=== PATIENT | female | born 1935 | race Caucasian/White ===

== ENCOUNTER 2017-06-17 15:34 | Inpatient (IN) | payer MEDICARE, MEDICAID ==
[~2017-06-17] VITALS: Ht 165.1 cm; Wt 65.3 kg
--- NOTE | 2017-06-17 15:35 | NUR ---
PT TO ED ROOM 03. BIB RA FROM [facility]ARE [facility]ILITY,SHORT OF BREATH. A/O x 1. SIDE RAIS LUP. HOB ELEVATED. CONNECTED TO MONIOTR.
[2017-06-17] MEDS ORDERED: ACETAMINOPHEN 650 MG/SUPP.RECT RC ONE ×2 (15:57→16:00)
[2017-06-17] MEDS ORDERED: PIPERACILLIN /TAZOBACTAM 3.375 G in IV D5W 50 ML IV ONE (16:00)
[2017-06-17] MEDS ORDERED: IV NS 0.9% 1,000 ML BAG IV ONE ×2 (16:00)
[2017-06-17] MEDS ORDERED: VANCOMYCIN 1 GM in IV D5W 250 ML IV ONE (16:00)
[2017-06-17 16:25] LABS: APPEARANCE,URINE CLEAR (CLEAR); BILIRUBIN,URINE NEGATIVE (NEGATIVE); BLOOD, URINE NEGATIVE Ery/uL (NEGATIVE); COLOR,URINE YELLOW (YELLOW); KETONES,URINE NEGATIVE (NEGATIVE); LEUKOCYTE ESTERASE ,URINE NEGATIVE (NEGATIVE); NITRITE, URINE NEGATIVE (NEGATIVE); PROTEIN,URINE TRACE mg/dl (NEGATIVE); UGLUCOSE NEGATIVE (NEGATIVE); UROBILINOGEN,URINE 0.2 EU/dL (0.2)
[2017-06-17 16:26] LABS: BASOPHILS % (AUTO) 0.1 % (0.0-2.0); HEMATOCRIT 41 % (33-45); HEMOGLOBIN 12.7 g/dL (11.5-14.8); LYMPHOCYTES % (AUTO) 9.8 % (20.0-44.0); MEAN CORPUSCULAR HEMOGLOBIN 29 PG (26.0-33.0); MEAN CORPUSCULAR HGB CONC 31 g/dl (31.0-36.0); MEAN CORPUSCULAR VOLUME 93 fL (82-100); MONOCYTES # (AUTO) 0.8 /CMM (0.1-1.30); MONOCYTES % (AUTO) 3.8 % (2.0-12.0); NEUTROPHILS # (AUTO) 17.5 /CMM (1.8-8.9); NEUTROPHILS % (AUTO) 86.3 % (43.0-81.0); PLATELET COUNT (AUTO) 142 /CMM (150-450); RDW COEFFICIENT OF VARIATION 15.7 (11.5-15.0); WHITE BLOOD COUNT (AUTO) 20.3 K/uL (4.3-11.0)
--- NOTE | 2017-06-17 16:27 | NUR ---
BED CHANGED TO 313-2 TELE
[2017-06-17 16:37] LABS: ALANINE AMINOTRANSFERASE 48 U/L (12-78); ALBUMIN 1.9 g/dL (3.4-5.0); ALKALINE PHOSPHATASE 89 U/L (46-116); ASPARTATE AMINOTRANSFERASE 30 U/L (15-37); BILIRUBIN,DIRECT 0.1 mg/dL (0.0-0.2); BILIRUBIN,TOTAL 0.7 mg/dL (0.2-1.0); CALCIUM, SERUM 9.4 mg/dL (8.5-10.1); CARBON DIOXIDE 36 mmol/L (21-32); CREATININE 1.1 mg/dL (0.6-1.3); GLUCOSE 279 mg/dL (74-106); POTASSIUM 3.6 mmol/L (3.5-5.1); TOTAL PROTEIN, SERUM 6.4 g/dL (6.4-8.2)
[2017-06-17 16:40] LABS: TROPONIN I 0.205 ng/mL (0.00-0.056)
[2017-06-17 16:41] LABS: INR 1.08 (0.87-1.13); PROTHROMBIN TIME 11.2 SECS (9.5-12.7)
[2017-06-17 16:43] LABS: SODIUM SERUM 167 mmol/L (136-145)
[2017-06-17 16:44] LABS: CHLORIDE 126 mmol/L (98-107); UREA NITROGEN, BLOOD 98 mg/dL (7-18)
[2017-06-17 16:51] LABS: BACTERIA,URINE Few /HPF (None Seen); RBC,URINE 0-2 /HPF (0-2); SQUAMOUS EPITHELIAL CELL,UR Moderate /HPF (None Seen); WBC,URINE 0-2 /HPF (0-3)
[2017-06-17 17:01] LABS: BAND % (MANUAL) 19 % (0.0-5.0); LYMPHOCYTES % (MANUAL) 14 % (16-48); MONOCYTES % (MANUAL) 7 % (0-11.0); NEUTROPHILS % (MANUAL) 60 (42-76)
[2017-06-17] MEDS ORDERED: IPRA3AMP IH (17:03)
[2017-06-17] MEDS ORDERED: FAMO-131 GT (17:03)
[2017-06-17] MEDS ORDERED: EXEM25TA5 GT (17:03)
[2017-06-17] MEDS ORDERED: METO25TA6 GT (17:03)
[2017-06-17] MEDS ORDERED: CLOP75TA2 GT (17:03)
[2017-06-17] MEDS ORDERED: NUT.237L30 GT (17:03)
[2017-06-17] MEDS ORDERED: DOCU100T2 GT (17:03)
[2017-06-17] MEDS ORDERED: LEVE500S GT (17:03)
[2017-06-17] MEDS ORDERED: VALS40TA4 GT (17:03)
--- NOTE | 2017-06-17 17:07 | NUR ---
CALLED [facility] FOR PANEL (DR. SAMANIEGO)
--- NOTE | 2017-06-17 17:37 | NUR ---
INFLUENZA SWAB R NARE OBTAINED, SEND TO LAB.
[2017-06-17] MEDS ORDERED: IV 1/2NS 1000 ML 1,000 ML IV PRN (17:44)
[2017-06-17 17:56] LABS: ABG BASE EXCESS 0.8 mmol/L; ABG OXYGEN SATURATION 91.5 % (92.0-98.5); ABG PCO2 37.3 mmHg (35.0-45.0); ABG PO2 67.7 mmHg (75.0-100.0); AaDO2 145.7 mmHg; COHb 0.1 % (0.5-1.5); MetHb 0.5 % (0.0-1.5); SITE, ABG Left Radial
[2017-06-17] MEDS: VALSARTAN 40 MG TABLET GT SCH (18:00)
[2017-06-17] MEDS ORDERED: Z GUARD REMEDY 2 OZ OINT TP PRN (18:00)
[2017-06-17] MEDS ORDERED: ENOXAPARIN SODIUM 40 MG/0.4 ML DISP.SYRIN SQ SCH (18:00)
[2017-06-17] MEDS ORDERED: DOCUSATE SODIUM LIQ 100 MG/10 ML UDC GT PRN (18:00)
[2017-06-17] MEDS ORDERED: ACETAMINOPHEN 325 MG TABLET PO PRN (18:00)
[2017-06-17] MEDS ORDERED: ONDANSETRON HCL/PF 4 MG/2 ML VIAL IVP PRN (18:00)
[2017-06-17] MEDS ORDERED: ASPIRIN 325 MG TABLET ONE (18:01)
[2017-06-17] MEDS: ASPIRIN 325 MG TABLET PO SCH (18:02)
[2017-06-17] MEDS ORDERED: FEE PK DOSING 1 MIN EA MC ONE (18:06)
--- NOTE | 2017-06-17 18:34 | NUR ---
REPORT GIVEN [id number] BUSINESS AREA MANAGER FOR EUSEBIA.
--- NOTE | 2017-06-17 18:45 | NUR ---
GROUP MARKETING VP RECEIVED PATIENT FROM E.R. DEPT A/OX 1, NON-VERBAL OPENS EYES ONLY, ON VENTURI MASK AT 6LPM, VITAL SIGNS OBTAINED, PER FAMILY DNR/DNI AND DO NOT USE RIGHT ARM D/T HX OF REMOVAL OF LYMPH NODE, SIGNED PLACED ON HEADBOARD, F/C PATENT AND DRAINING, NEEDS ATTENDED, WILL ENDORSE TO LANGUAGE THERAPIST FOR EUSEBIA.
[2017-06-17 19:00] VITALS: BP 98/59
--- NOTE | 2017-06-17 19:15 | NUR ---
MS/RN OPENING NOTES PT RECEIVED IN BED, OPENS EYES BUT NONVERBAL. ON 6LPM O2 VIA VENTURI MASK, BREATHING EVEN AND SLIGHTLY LABORED. NO IV, BP OR BLOOD DRAWS TO RIGHT ARM, SIGNS ABOVE HOB. IV TO LFA PATENT AND INTACT. CEBALLOS IN PLACE AND DRAINING WELL. HOB ELEVATED. GT SITE NOTED. BED IN LOW/LOCKED POSITION WITH CALL LIGHT IN REACH SIDE RAILS UPX2. BED ALARM ON FOR SAFETY. WILL CONTINUE TO MONITOR.
[2017-06-17] MEDS ORDERED: Medication Not On Formulary EA (Ipratropium/Albuterol Sulfate (Duoneb 2.5-0.5 Mg/3 Ml So IH SCH (19:30)
[2017-06-17 20:00] VITALS: BP 114/61
[2017-06-17] MEDS ORDERED: PIPERACILLIN /TAZOBACTAM 4.5 G in IV D5W 50 ML IV SCH (21:00)
[2017-06-17] MEDS: METOPROLOL TARTRATE 25 MG TABLET GT SCH (21:00)
[2017-06-17 21:45] VITALS: BP 100/47
[2017-06-17] MEDS: LEVETIRACETAM SOL (5 ML) 100 MG/ML UDC GT SCH (22:03)
[2017-06-17] MEDS: FAMOTIDINE (20 MG) 20 MG TABLET GT SCH (22:03)
[2017-06-17] MEDS: GLYTROL 1,000 ML BAG GT PRN (22:05)
[2017-06-17] MEDS: PIPERACILLIN /TAZOBACTAM 2.25 G in IV D5W 50 ML IV SCH (22:06)
[2017-06-17] MEDS: ALBUTEROL FS 2.5 MG/3 ML VIAL.NEB NEB SCH (22:42)
[2017-06-17] MEDS: IPRATROPIUM NEB FS 0.5 MG/2.5 ML AMPUL.NEB NEB SCH (22:42)
--- NOTE | 2017-06-17 23:20 | NUR ---
MS/RN NOTES ATTEMPTED TO CALL FAMILY TO CONFIRM CODE STATUS. FITNESS CENTRE MANAGER TRIED CALLING WELL. PROGRESS NOTES PER DR. SAMANIEGO SAYS HE DISCUSSED END OF LIFE WITH FAMILY. NOTES PER DAY SHIFT SHOWS "PER FAMILY DNR/DNI"
--- NOTE | 2017-06-18 | NUR ---
MS/RN NOTES SPOKE TO FAMILY MEMBERS RUDI AND STEVIE. CONFIRM DNR/DNI STATUS. WITNESSED BY REPLANTING MACHINE OPERATOR
[2017-06-18] MEDS: IPRATROPIUM NEB FS 0.5 MG/2.5 ML AMPUL.NEB NEB SCH ×6 (03:30→23:37)
[2017-06-18] MEDS: ALBUTEROL FS 2.5 MG/3 ML VIAL.NEB NEB SCH ×6 (03:30→23:37)
[2017-06-18 04:00] VITALS: BP 120/64
[2017-06-18 05:00] VITALS: BP 108/56
[2017-06-18] MEDS: PIPERACILLIN /TAZOBACTAM 2.25 G in IV D5W 50 ML IV SCH ×4 (06:10→23:21)
--- NOTE | 2017-06-18 06:41 | NUR ---
MS/RN CLOSING NOTES PT ASLEEP IN BED. OPENS EYES, NONVERBAL. REMAINS ON VENTURI MASK AT 6LPM. BREATHING EVEN AND SLIGHTLY LABORED. SPO2 >95% THROUGHOUT SHIFT. IV TO LEFT FA PATENT AND INTACT RUNNING IVF ORDERED. GT PATENT AND INTACT, FLUSHED AND IS RUNNING GLYTROL ORDERED. CEBALLOS IN PLACE AND DRAINING WELL. PT REMAINED AFEBRILE DURING SHIFT. TURNED/REPOSITIONED PT Q2H AND HEELS OFFLOADED AT ALL TIMES. HOB ELEVATED SEMI FOWLERS FOR ASPIRATION PRECAUTION. BED IN LOW/LOCKED POSITION, CALL LIGHT IN REACH AND SIDE RAILS UPX2. WILL ENDORSE TO AM SHIFT EUSEB[place].
[2017-06-18 07:17] LABS: BASOPHILS % (AUTO) 0.2 % (0.0-2.0); EOSINOPHILS % (AUTO) 0.2 % (0.0-6.0); HEMATOCRIT 35 % (33-45); HEMOGLOBIN 11.2 g/dL (11.5-14.8); LYMPHOCYTES # (AUTO) 1.8 /CMM (0.8-4.8); LYMPHOCYTES % (AUTO) 9.4 % (20.0-44.0); MEAN CORPUSCULAR HEMOGLOBIN 30 PG (26.0-33.0); MEAN CORPUSCULAR HGB CONC 32 g/dl (31.0-36.0); MEAN CORPUSCULAR VOLUME 92 fL (82-100); MONOCYTES # (AUTO) 0.8 /CMM (0.1-1.30); MONOCYTES % (AUTO) 4.5 % (2.0-12.0); NEUTROPHILS # (AUTO) 16.1 /CMM (1.8-8.9); NEUTROPHILS % (AUTO) 85.7 % (43.0-81.0); PLATELET COUNT (AUTO) 146 /CMM (150-450); RDW COEFFICIENT OF VARIATION 15.1 (11.5-15.0); RED BLOOD CELL COUNT(AUTO) 3.77 MIL/uL (4.0-5.2); WHITE BLOOD COUNT (AUTO) 18.7 K/uL (4.3-11.0)
[2017-06-18 07:36] LABS: ALANINE AMINOTRANSFERASE 38 U/L (12-78); ALBUMIN 1.6 g/dL (3.4-5.0); ALKALINE PHOSPHATASE 80 U/L (46-116); ASPARTATE AMINOTRANSFERASE 31 U/L (15-37); BILIRUBIN,TOTAL 0.8 mg/dL (0.2-1.0); CARBON DIOXIDE 31 mmol/L (21-32); CHLORIDE 125 mmol/L (98-107); CREATININE 0.8 mg/dL (0.6-1.3); GLUCOSE 328 mg/dL (74-106); MAGNESIUM 2.5 mg/dL (1.8-2.4); PHOSPHORUS 2.9 mg/dL (2.5-4.9); POTASSIUM 3.3 mmol/L (3.5-5.1); TOTAL PROTEIN, SERUM 5.5 g/dL (6.4-8.2); UREA NITROGEN, BLOOD 73 mg/dL (7-18)
--- NOTE | 2017-06-18 07:58 | NUR ---
MS/RN OPENING NOTE PATIENT RECEIVED IN BED IN STABLE CONDITION. A/O X 1. NON VERBAL, OPEN EYES. NO SIGNS OF ACUTE DISTRESS. NO COMPLAIN OF PAIN OR DISCOMFORT. ALL NEEDS ATTENDED TO. CALL LIGHT WITHIN REACH. WILL CONTINUE TO MONITOR TO ENSURE SAFETY.
[2017-06-18 08:00] VITALS: BP 106/60
[2017-06-18 08:10] LABS: SODIUM SERUM 163 mmol/L (136-145)
--- NOTE | 2017-06-18 08:15 | NUR ---
MS/RN SODIUM CH RECEIVED CALL FROM JOHN FROM LAB AND SHE MADE AWARE REGARDING PATIENT'S SODIUM OF [address] SAMANIEGO NOTIFIED WITH NO ORDERS AT THIS TIME. PER DR. SAMANIEGO ITS TRENDING DOWN COMPARE TO YESTERDAY Na LEVEL OF 167. ALSO GAVE ORDER FOR ABG'S AND CXR TODAY.
[2017-06-18 08:37] LABS: CALCIUM, SERUM 7.9 mg/dL (8.5-10.1)
[2017-06-18] MEDS: ASPIRIN 325 MG TABLET PO SCH (08:40)
[2017-06-18] MEDS: LEVETIRACETAM SOL (5 ML) 100 MG/ML UDC GT SCH ×2 (08:40→20:14)
[2017-06-18] MEDS: METOPROLOL TARTRATE 25 MG TABLET GT SCH ×3 (08:41→21:00)
[2017-06-18] MEDS: FAMOTIDINE (20 MG) 20 MG TABLET GT SCH ×2 (08:41→20:14)
[2017-06-18] MEDS: VALSARTAN 40 MG TABLET GT SCH (08:42)
[2017-06-18] MEDS ORDERED: CLOPIDOGREL BISULFATE 75 MG TABLET GT SCH (09:00)
[2017-06-18] MEDS ORDERED: EXEMESTANE 25 MG GT SCH (09:00)
[2017-06-18 09:15] LABS: ABG BASE EXCESS 1.1 mmol/L; ABG OXYGEN SATURATION 95.4 % (92.0-98.5); ABG PCO2 36.6 mmHg (35.0-45.0); ABG PO2 89.7 mmHg (75.0-100.0); AaDO2 117.3 mmHg; COHb 0.3 % (0.5-1.5); O2Hb 94.2 % (94.0-97.0); SITE, ABG Left Radial
[2017-06-18] MEDS: VANCOMYCIN 1 GM in IV D5W 250 ML IV SCH (09:15)
[2017-06-18] MEDS ORDERED: POTASSIUM CHLORIDE 20 MEQ POWDER PACKET GT SCH (12:00)
--- NOTE | 2017-06-18 13:54 | NUR ---
Social service consult requested by Dr. Edwards for a readmission score of 7. Pt. is a 81 year old female who was admitted to [facility] for SOB. Pt. resides at [facility] located at [address] [place] [address]. . SW discussed case with leather case finisher Rose Blake who informed SW that pt. will now be on hospice care. Pt's son is Ernie and can be reached at .
--- NOTE | 2017-06-18 15:38 | NUR ---
FAMILY REFUSING XRAY, RN IS AWARE.
[2017-06-18 16:00] VITALS: BP 134/62
[2017-06-18] MEDS ORDERED: MORPHINE SULFATE INJ 2 MG/ML DISP.SYRIN IM PRN (17:00)
[2017-06-18] MEDS: MORPHINE SULFATE INJ 2 MG/ML DISP.SYRIN IV PRN ×2 (17:49→21:26)
--- NOTE | 2017-06-18 19:00 | NUR ---
MS/RN CLOSING NOTE PATIENT IN BED IN STABLE CONDITION. A/O X 1. NON VERBAL, EYES OPENED. ON VENTURI MASK AT 9L O2, O2 SAT 97%. NO SIGNS OF PAIN OR DISCOMFORT. ALL NEEDS ATTENDED TO. CALL LIGHT WITHIN REACH. WILL ENDORSE TO NEXT SHIFT FOR CONTINUITY OF CARE.
--- NOTE | 2017-06-18 19:40 | NUR ---
MS RN OPENING NOTES RECEIVED PATIENT LAYING IN BED IN MODERATE GALLAGHER POSITION. A & O X 1, NON VERBAL, OPENS & CLOSES EYES. ON O2 AT 9LPM VIA VENTURI MASK. NO SOB, NO S/S OF PAIN OR DISTRESS NOTED AT THIS TIME. ON CONTINUOS GLYTROL GTF AT 45ML/HR. RESIDUAL & PATENCY CHECKED. IV ACCESS TO LFA, INTACT PATENT. SIDE RAILS UP X 2 FOR SAFETY. BED IN LOW LOCKED POSITION. MADE COMFORTABLE IN BED. CALL LIGHT WITHIN REACH. OBSERVING CLOSELY.
[2017-06-18 19:41] VITALS: BP 120/53
[2017-06-18] MEDS: FLUCONAZOLE IN NS 100 MG in PREMIX 1 EA IV SCH ×2 (20:15)
[2017-06-18 21:20] VITALS: BP 108/71
--- NOTE | 2017-06-18 21:26 | NUR ---
PRN MORPHINE: PT NOTED TO HAVE FACIAL GRIMACE AND MOANING, ALSO PER FAMILY REQUEST TO GIVE THE MORPHINE, PT FOR HOSPICE EVAL IN AM, PRN MORPHINE 1MG IVP ADMINISTERED TO THE PT AT THIS TIME, VS TAKEN AND RECORDED, WILL CONTINUE TO MONITOR AND REASSESS
--- NOTE | 2017-06-18 21:50 | NUR ---
NEW BAG OF FEEDING: PT'S ABDOMEN SOFT TO TOUCH, WITH HYPOACTIVE BOWEL SOUND HEARD UPON AUSCULTATION OF THE ABDOMEN, NO GTUBE RESIDUAL NOTED, NEW BAG OF GLYTROL ULTRAPAK ADMINISTERED AT THIS TIME, TO RUN AT 45ML/HR.
[2017-06-18] MEDS: GLYTROL 1,000 ML BAG GT PRN (21:57)
--- NOTE | 2017-06-18 23:50 | NUR ---
CHANGE OF IV SITE LFA IV SITE NOTED TO BE INFILTRATED. IV SITE CHANGED TO LEFT WRIST WITH GOOD BLOOD FLOW. OLD IV CATH REMOVED. PRESSURE DRESSING APPLIED. ELEVATED THE LEFT EXTREMITY TO REDUCE THE SWELLING AT IV SITE. MONITORING CLOSELY.
--- NOTE | 2017-06-19 07:20 | NUR ---
RN OPENING NOTES RECEIVED PATIENT IN BED, AWAKE, NONVERBAL, OPENS EYES, NO FACIAL GRIMACING NOTED. APPEARS CALM AND COMFORTABLE. SHALLOW RESPIRATIONS NOTED, REMAINS ON 35% FIO2 VENTIMASK, O2 SAT 97-98%. IV SITE INTACT AND PATENT. CEBALLOS CATH IN PLACE. GTUBE INFUSING GLYTROL AT 45ML/HR. AWAITING FOR HOSPICE EVAL. KEPT PATIENT SAFE AND COMFORTABLE. WILL CONTINUE TO MONITOR ACCORDINGLY.
[2017-06-19 08:00] VITALS: BP 128/64
[2017-06-19] MEDS: LEVETIRACETAM SOL (5 ML) 100 MG/ML UDC GT SCH ×2 (09:00→20:39)
[2017-06-19] MEDS: FAMOTIDINE (20 MG) 20 MG TABLET GT SCH ×2 (09:00→20:38)
[2017-06-19] MEDS: VALSARTAN 40 MG TABLET GT SCH (09:00)
[2017-06-19] MEDS: METOPROLOL TARTRATE 25 MG TABLET GT SCH ×2 (09:00→20:52)
[2017-06-19] MEDS: IPRATROPIUM NEB FS 0.5 MG/2.5 ML AMPUL.NEB NEB SCH ×4 (09:50→20:35)
[2017-06-19] MEDS: ALBUTEROL FS 2.5 MG/3 ML VIAL.NEB NEB SCH ×4 (09:50→20:36)
--- NOTE | 2017-06-19 10:00 | NUR ---
RN NOTES PER DR SAMANIEGO, HOLD AM MEDS. WILL CONTINUE TO MONITOR PATIENT.
[2017-06-19 10:35] LABS: CALCIUM, SERUM 7.8 mg/dL (8.5-10.1); CARBON DIOXIDE 29 mmol/L (21-32); CHLORIDE 119 mmol/L (98-107); CREATININE 0.6 mg/dL (0.6-1.3); GLUCOSE 339 mg/dL (74-106); POTASSIUM 3.6 mmol/L (3.5-5.1); SODIUM SERUM 155 mmol/L (136-145); UREA NITROGEN, BLOOD 43 mg/dL (7-18)
[2017-06-19] MEDS: PIPERACILLIN /TAZOBACTAM 2.25 G in IV D5W 50 ML IV SCH ×3 (12:00→23:36)
[2017-06-19] MEDS: MORPHINE SULFATE INJ 2 MG/ML DISP.SYRIN IV PRN ×2 (14:06→20:39)
[2017-06-19 16:00] VITALS: BP 129/68
--- NOTE | 2017-06-19 17:30 | NUR ---
RN NOTES RECEIVED CALL FROM MICROBIOLOGY DEPT, PATIENT POSITIVE MRSA NARES, NOTIFIED CHARGE NURSE,ISAÍAS. WILL NOTIFY
--- NOTE | 2017-06-19 19:20 | NUR ---
RN CLOSING NOTES NO CHANGE OF CONDITION. NO ACUTE DISTRESS, NO SOB NOTED. NO S/S OF PAIN OR DISCOMFORT. ALL NEEDS ATTENDED AND PROVIDED. KEPT PATIENT SAFE AND COMFORTABLE. REPOSITIONED EVERY 2 HOURS. BED LOCKED, IN LOW POSITION, SIDERAILS UP X2. CALL LIGHT WITHIN REACH. ENDORSED TO NIGHT RN FOR EUSE[place].
--- NOTE | 2017-06-19 19:40 | NUR ---
RN INITIAL NOTES: RECEIVED REPORT FROM NIEVES SMART, PT IN BED, AWAKE, NON VERBAL, OPEN EYES SPONTANEOUSLY, UNABLE TO MAKE NEEDS KNOWN, ON VENTI MASK 9L FIO2 35%, CONNECTED TO CONTINUOUS PULSE OX CURRENTLY 99%, SHALLOW RESPIRATION NOTED, PT HAS LEFT WRIST IV ACCESS PATENT AND FLUSHING WELL, INFUSING WITH D5W AT TKO. PT ALSO HAVE GTUBE IN PLACED, RECEIVING GLYTROL ULTRAPAK AT 45ML/HR. CEBALLOS CATHETER IN PLACED DRAINING INTO TEA COLORED URINE. BLE OFFLOADED. SAFETY PRECAUTIONS FOR FALL INITIATED, CALL LIGHT IN REACH, WILL CONTINUE TO MONITOR.
[2017-06-19 20:00] VITALS: BP 125/62
[2017-06-19] MEDS: GLYTROL 1,000 ML BAG GT PRN (20:06)
[2017-06-19] MEDS: FLUCONAZOLE IN NS 100 MG in PREMIX 1 EA IV SCH ×2 (20:07)
--- NOTE | 2017-06-19 20:39 | NUR ---
GTUBE RESIDUAL CHECK: PT'S ABDOMEN SOFT TO TOUCH, ACTIVE BOWEL SOUND HEARD UPON AUSCULTATION, GTUBE RESIDUAL CHECK AND NOTHING WAS OBTAINED, DUE MEDS ADMINISTERED AT THIS TIME
--- NOTE | 2017-06-19 20:40 | NUR ---
PRN MORPHINE: PT NOTED TO BE CRYING, TEARS NOTED ON BOTH EYES, GUARDING, WITH FACIAL GRIMACE, USED FLACC SCALE, SCORE OF 8, PRN PAIN MEDICATION MORPHINE 1MG IVP ADMINISTERED TO THE PT AT THIS TIME, WILL CONTINUE TO MONITOR AND REASSESS
[2017-06-19 20:51] VITALS: BP 132/76
--- NOTE | 2017-06-19 20:53 | NUR ---
NON ADMIN OF LOPRESSOR: PT'S VS TAKEN AND RECORDED, NOTED BP WNL, LOPRESSOR NOT ADMINISTERED AT THIS TIME, WILL CONTINUE MONITORING PT'S VS, AND WATCH OUT FOR ANY HYPOTENSION OR HYPERTENSION
[2017-06-19] MEDS: VANCOMYCIN 1 GM in IV D5W 250 ML IV SCH (22:10)
[2017-06-20] MEDS: IPRATROPIUM NEB FS 0.5 MG/2.5 ML AMPUL.NEB NEB SCH ×4 (00:05→11:22)
[2017-06-20] MEDS: ALBUTEROL FS 2.5 MG/3 ML VIAL.NEB NEB SCH ×5 (00:05→11:22)
--- NOTE | 2017-06-20 00:07 | NUR ---
FREE WATER FLUSH: FLUSHED GTUBE WITH 200ML OF WATER ORDERED
[2017-06-20 04:00] VITALS: BP 129/66
[2017-06-20] MEDS: MORPHINE SULFATE INJ 2 MG/ML DISP.SYRIN IV PRN ×2 (04:00→08:10)
--- NOTE | 2017-06-20 04:00 | NUR ---
prn morphine: pt noted to be moaning, guarding , frequent facial grimaces, used flacc scale score obtained 8, appears to be in pain, prn morphine 1mg ivp administered to the pt at this time, will continue to monitor and reassess
[2017-06-20] MEDS: PIPERACILLIN /TAZOBACTAM 2.25 G in IV D5W 50 ML IV SCH ×2 (05:25→12:00)
--- NOTE | 2017-06-20 05:43 | NUR ---
am care: bed bath provided by keon turcios v
--- NOTE | 2017-06-20 06:44 | NUR ---
RN CLOSING NOTES: PT IN BED, REMAINS AWAKE, OPEN EYES AND NON VERBAL, REMAINS ON 99% VIA VENTI MASK, STILL WITH SHALLOW RESPIRATION, PT APPEARS COMFORTABLE AND CALM, NO FACIAL GRIMACE NOTED AT THIS TIME, IV ACCESS REMAINS PATENT AND FLUSHING WELL, CEBALLOS BAG WAS EMPTIED, GTUBE REMAINS INFUSING WITH GLYTROL ULTRAPAK AT 45ML/HR. PT FOR HOSPICE EVAL TODAY, AWAITING FAMILY/SON WHO LIVES IN [place], POSSIBLY COMING TODAY IN AM, VS REMAINS STABLE, NEEDS ATTENDED AND ANTICIPATED, SAFETY PRECAUTIONS FOR FALL REMAINS ENGAGED, CALL LIGHT IN REACH, WILL ENDORSE TO DAY RN FOR [place].
--- NOTE | 2017-06-20 07:20 | NUR ---
RN OPENING NOTES RECEIVED PATIENT IN BED, AWAKE, NONVERBAL, OPENS EYES, NO FACIAL GRIMACING NOTED. APPEARS CALM AND COMFORTABLE. SHALLOW RESPIRATIONS NOTED, REMAINS ON VENTIMASK, O2 SAT 97-98%. IV SITE INTACT AND PATENT. CEBALLOS CATH IN PLACE. GTUBE INFUSING GLYTROL AT 45ML/HR. KEPT PATIENT SAFE AND COMFORTABLE. BED IN LOW POSITION, LOCKED, HOB ELEVATED, SIDERAILS UP X2.WILL CONTINUE TO MONITOR ACCORDINGLY.
[2017-06-20 07:26] LABS: CALCIUM, SERUM 8.1 mg/dL (8.5-10.1); CARBON DIOXIDE 28 mmol/L (21-32); CHLORIDE 115 mmol/L (98-107); CREATININE 0.7 mg/dL (0.6-1.3); GLUCOSE 329 mg/dL (74-106); POTASSIUM 4.4 mmol/L (3.5-5.1); SODIUM SERUM 149 mmol/L (136-145); UREA NITROGEN, BLOOD 30 mg/dL (7-18)
[2017-06-20 08:00] VITALS: BP 137/62
--- NOTE | 2017-06-20 08:17 | NUR ---
RN NOTES PT NOTED TO BE MOANING, FREQUENT FACIAL GRIMACING , USED FLACC SCALE SCORE OBTAINED 8, APPEARS TO BE IN PAIN. MORPHINE GIVEN ORDERED. WILL REASSESS AND MONITOR PATIENT ACCORDINGLY.
[2017-06-20] MEDS: METOPROLOL TARTRATE 25 MG TABLET GT SCH (09:00)
[2017-06-20] MEDS: VALSARTAN 40 MG TABLET GT SCH (09:00)
[2017-06-20] MEDS: LEVETIRACETAM SOL (5 ML) 100 MG/ML UDC GT SCH (09:25)
[2017-06-20] MEDS: FAMOTIDINE (20 MG) 20 MG TABLET GT SCH (09:25)
--- NOTE | 2017-06-20 09:30 | NUR ---
RN NOTES PT'S VS TAKEN AND RECORDED, NOTED BP WNL, BP MEDICATIONS NOT ADMINISTERED AT THIS TIME, WILL CONTINUE MONITORING PT'S VS, AND WATCH OUT FOR ANY HYPOTENSION OR HYPERTENSION
[2017-06-20 12:00] VITALS: BP 130/61
--- NOTE | 2017-06-20 13:00 | NUR ---
RN NOTES GRADUATE TEACHING ASSOCIATE ON BEDSIDE TALKING TO THE FAMILY.WILL CONTINUE TO MONITOR ACCORDINGLY.
--- NOTE | 2017-06-20 13:00 | NUR ---
RN CLOSING NOTES PATIENT DISCHARGE TO INPATIENT HOSPICE.
[2017-06-20] MEDS ORDERED: VANCOMYCIN 0.75 GM in IV D5W 250 ML IV SCH (16:00)
== END 2017-06-20 14:00 | disposition hospice, home (50) | DRG 871 ==
LOC: ER 15:35 → MED 17:28
PROVIDERS: ADMIT Internal Medicine; ATTEND Internal Medicine
DX: A41.9 Sepsis, unspecified organism (principal); G93.41 Metabolic encephalopathy; J69.0 Pneumonitis due to inhalation of food and vomit; J96.01 Acute respiratory failure with hypoxia; N17.0 Acute kidney failure with tubular necrosis; I21.4 Non-ST elevation (NSTEMI) myocardial infarction; E87.0 Hyperosmolality and hypernatremia; D69.6 Thrombocytopenia, unspecified; E86.0 Dehydration; E11.9 Type 2 diabetes mellitus without complications; G40.909 Epilepsy, unspecified, not intractable, without status epilepticus; I10 Essential (primary) hypertension; Z86.73 Personal history of transient ischemic attack (TIA), and cerebral infarction without residual deficits; Z85.3 Personal history of malignant neoplasm of breast; K21.9 Gastro-esophageal reflux disease without esophagitis; Z66 Do not resuscitate; Z93.1 Gastrostomy status; J01.90 Acute sinusitis, unspecified; Z79.899 Other long term (current) drug therapy; R65.20 Severe sepsis without septic shock
CPT/HCPCS: 36415; 36600; 70450-TC; 71010-TC; 80048-TC; 80053-TC; 80076-TC; 80202-TC; 81000-TC; 82803-TC; 83605-TC; 83735-TC; 84100-TC; 84484-TC; 85025-TC; 85730-TC; 87040-TC; 87081-TC; 87086-TC; 87400; 94799-TC; A4216; A4606; J1450; J1650; J1953; J2270; J2543; J3370; J3490; J7030; J7060; Z7610

== ENCOUNTER 2017-06-20 14:28 | Inpatient (IN) | payer OTHER ==
[~2017-06-20] VITALS: Ht 165.1 cm; Wt 65.3 kg
--- NOTE | 2017-06-20 13:00 | NUR ---
RN OPENING NOTES ADMIT PATIENT TO [facility] FROM [facility] LATE EFFECTS OF CV[facility]. SUPPLY CHAIN ASSISTANT ON BEDSIDE TALKING TO FAMILY. SUPPLY CHAIN ASSISTANT PLACED PATIENT ON O2 10LPM VIA NASAL CANULA, O2 SAT 99%. GTUBE FEEDINGS DISCONTINUED ORDERED. NEW ORDERS NOTED AND CARRIED OUT. PATIENT RESTING COMFORTABLY IN BED, HOB ELEVATED, NO ACUTE DISTRESS NOTED. IV SITE INTACT AND PATENT. CEBALLOS IN PLACE DRAINING YELLOW CLEAR URINE. KEPT PATIENT SAFE AND COMFORTABLE. BED IN LOW POSITION, LOCKED, SIDERAILS UPX2, CALL LIGHT WITHIN REACH. WILL CONTINUE TO MONITOR ACCORDINGLY.
[~2017-06-20 14:28] MED LIST: CLOP75TA2 GT; DOCU100T2 GT; EXEM25TA5 GT; FAMO-131 GT; IPRA3AMP IH; LEVE500S GT; METO25TA6 GT; NUT.237L30 GT; VALS40TA4 GT
--- NOTE | 2017-06-20 15:30 | NUR ---
RN NOTES REPOSITIONED PATIENT FOR COMFORT, TOLERATED WELL. WILL CONTINUE TO MONITOR ACCORDINGLY.
[2017-06-20 16:00] VITALS: BP 135/96
[2017-06-20] MEDS: MORPHINE SULFATE INJ 4 MG/ML DISP.SYRIN IV PRN ×2 (19:22→23:14)
--- NOTE | 2017-06-20 19:30 | NUR ---
RN CLOSING NOTES PATIENT IN BED RESTING COMFORTABLY, FAMILY ON BEDSIDE. NO CHANGE IN PATIENT'S CONDITION. NO ACUTE DISTRESS NOTED. SHALLOW RESPIRATIONS NOTED. ON O2 10LPM VIA NC, O2 SAT OF 99%. HEAD OF BED ELEVATED. TURN AND REPOSITION FOR COMFORT EVERY 2HRS. ALL NEEDS ATTENDED AND PROVIDED. BED IN LOW POSITION, LOCKED, SIDERAILS UPX2. CALL LIGHT WITHIN REACH. ENDORSED TO NIGHT RN FOR EUSE[place].
--- NOTE | 2017-06-20 19:30 | NUR ---
RN NOTES: RECEIVED RAIMUNDO ON BED SEMI FOWLERS POSITION, ON AT 10L/MIN VIA NC SPO2@ 95%,OBSTUNDED,NON VERBAL, RELATIVES PRESENT AT BED SIDE, PEG TUBE INTACT, CEBALLOS CATH IN PLACE, OUTPUT AT 50CC LEVEL, DARK BROWN YELLOWISH COLORED URINE, CLOUDY APPEARANCE,KEPT IN COMFORTABLE POSITION, OUTGOING NURSE ENDORSED HE WILL GIVE MORPHINE FOR PAIN,WILL CONTINUE TO MONITOR, FALL,SAFETY PRECAUTION OBSERVED, CALL LIGHT WITHIN EASY REACH,KEPT ON CLOSE WATCH.
[2017-06-20 20:00] VITALS: BP 131/68
--- NOTE | 2017-06-20 20:00 | NUR ---
RN NOTES; KEPT IN COMFORTABLE POSITION,NO SOB OR RESPIRATORY DISTRESS NOTED, PATIENT ON NC AT 10L/MIN,VERIFIED WITH RT IF NEED HUMIDIFIER, SPOKE WITH WILLIAM BETTER TO CHANGE TO FACIAL MASK,LATEST SPO2-97%,ON CLOSE MONITORING, SLEEPING COMFORTABLY.
--- NOTE | 2017-06-20 21:35 | NUR ---
RN NOTES; CHECK AT FREQUENT INTERVAL,PROVIDED WITH WARM BLANKET, OPENING HER EYES IN VERBAL STIMULI WHEN HER NAME IS CALLED,RR-27 BREATH/MIN,BREATHING EVENLY THROUGH HER MOUTH,KEPT IN COMFORTABLE POSITION.
--- NOTE | 2017-06-20 23:19 | NUR ---
RN NOTES; DURING ROUNDS NOTICE INCREASE RESPIRATION 30 B/MIN,KS-100,INCREASE DEPTH IN BREATHING AND RATE,EYES ARE OPEN AND MOVING HER HANDS WHEN HELD FIRMLY,MORPHINE PRN GIVEN,SPO2-98%,KEPT COMFORTABLE IN BED.
--- NOTE | 2017-06-20 23:58 | NUR ---
RN NOTES; CHECK AT FREQUENT INTERVAL,NOTICE INCREASE RESP.RATE=31 BREATH/MIN,GASPING,FL-101.LIPS WET WITH GLYCERIN SWAB.SHE IS OPENING HER EYES AND MOVING HER RIGHT HAND.KEEP IN COMFORTABLE POSITION.
--- NOTE | 2017-06-21 04:00 | NUR ---
RN NOTES: CLOSING HER EYES FOR SHORT PERIOD OF TIME THEN AWAKE AGAIN,GASPING STATE,RESPIRATORY RATE-30,KEEP LIPS WET,NEEDS ATTENDED, CEBALLOS CATH DRAINING,RESIDUE NOTED ON THE TUBINGS.VISUAL CHECK DONE AT FREQUENT INTERVAL
[2017-06-21] MEDS: MORPHINE SULFATE INJ 4 MG/ML DISP.SYRIN IV PRN ×5 (05:35→22:20)
--- NOTE | 2017-06-21 05:58 | NUR ---
RN NOTES: AT 0535AM,MORNING CARE DONE,PATIENT GRIMACE DURING TURNING AND REPOSITION,MORPHINE GIVEN FOR PAIN, LIGHT SPONGE BATH RENDERED,Z-GUARD APPLIED TO REDNESS ON THE SACRAL AREA,MEPELEX CHANGE ON RIGHT AND LEFT EAR AREA,KEPT IN SEMI FOWLERS POSITION,SPO2-98% WITH O2 AT 10L/MIN VIA MASK.URINE OUTPUT AT 200CC LEVEL.KEP COMFORTABLE IN BED.
[2017-06-21 06:00] VITALS: BP 138/71
--- NOTE | 2017-06-21 06:38 | NUR ---
RN NOTES: ORAL CARE DONE, AWAKE,LIPS MOIST WITH LEMON SWAB,SHE IS MOVING HER LEFT HAND AND EYES OPEN WHEN SHE IS TOUCHED,BOTH UPPER AND LOWER EXTREMITIES WARM TOUCH, LATEST V/S BP-138/71, AFEBRILE, SPO2-100%,RR-28,WV-98.ENDORSED FOR CONTINUITY OF CARE.
--- NOTE | 2017-06-21 07:26 | NUR ---
MS/RN OPENING NOTES PATIENT RECEIVED AWAKE IN BED IN NO ACUTE SIGNS OF DISTRESS. OPENS EYES, NON-VERBAL. HOB ELEVATED. HOSPICE CARE MAINTAINED. ON O2 VIA N/C @ 10LPM, TOLERATING WELL WITH SP02 OF 98% NOTED. G-TUBE INTACT AND PATENT. IV ACCESS LEFT WRIST INTACT AND PATENT, NO SIGNS OF PHLEBITIS AT SITE NOTED. CEBALLOS IN PLACE DRAINING SLIGHTLY DARK CLEAR YELLOW URINE TO URINARY BAG AT BEDSIDE. KEPT BED IN LOW POSITION, LOCKED WITH SIDE-RAILS UPX2, CALL LIGHT WITHIN REACH. WILL CONTINUE TO MONITOR PT ACCORDINGLY.
[2017-06-21 08:00] VITALS: BP 136/62
[2017-06-21 16:00] VITALS: BP 126/81
--- NOTE | 2017-06-21 18:31 | NUR ---
MS/RN CLOSING NOTES PATIENT IN BED LYING @ MODERATE HIGH BACKREST POSITION WITH FAMILY AND FRIENDS AT BEDSIDE. OPENS EYES, NON-VERBAL. NO CHANGED IN PATIENT'S CONDITION NOTED THROUGHOUT THE DAY. SHALLOW RESPIRATIONS NOTED ON AND OFF NOTED, MAINTAINED ON 02 VIA MASK AT 10LPM WITH O2 SAT OF 99% -100%, MORPHINE 1MG GIVEN IVP PRN WITH RELIEF OF SOB. KEPT HEAD OF BED ELEVATED. TURNED AND REPOSITIONED Q 2HRS AND PRN FOR COMFORT. ALL NEEDS/CARE PROVIDED WELL. KEPT BED IN LOW AND LOCKED WITH SIDERAILS UPX2. CALL LIGHT WITHIN REACH. WILL ENDORSED TO ARMATURE AND ROTOR WINDER NURSE FOR EUSEB[place].
--- NOTE | 2017-06-21 19:35 | NUR ---
RN OPENING NOTES RECEIVED REPORT FROM FELIBERTORISAM HOPSON. Pt IS UNDER HOSPICE CARE; COMFORT MEASURES ONLY. PEG FEEDING D/C'd ON 06/20/17, NOW IS NPO. Pt IS NON-VERBAL, BUT WITH EYE MOVEMENTS. IV ACCESS ON L WRIST #22G, SL. FAMILY VISITING AT BEDSIDE. SAFETY MEASURES IN PLACE. BED LOW, LOCKED, HOB ELEVATED, SIDE RAILS UP, CALL LIGHT AND BEDSIDE TABLE WITHIN REACH. WILL CONTINUE TO MONITOR Pt THROUGHOUT THE NIGHT FOR SAFETY.
[2017-06-21 20:00] VITALS: BP 127/73
[2017-06-22] MEDS: MORPHINE SULFATE INJ 4 MG/ML DISP.SYRIN IV PRN ×9 (04:37→23:45)
--- NOTE | 2017-06-22 06:35 | NUR ---
RN CLOSING NOTES Pt IS ON COMFORT HOSPICE CARE. VS STILL REMAINS STABLE. BP 134/69, HR 91, R 22, T 98.2F, O2 100%. ON 10L MASK. COMFORT MEASURES GIVEN. SAFETY MEASURES IN PLACE. WILL ENDORSE TO DAYSHIFT RN FOR Pt's EUSEB[place].
--- NOTE | 2017-06-22 07:52 | NUR ---
RN NOTES RECEIVED PT. PT IS IN BED RESTING. PT IS NON-VERBAL. NO S/S OF DISTRESS OR SOB. PT APPEARS TO BE IN PAIN, UNABLE TO SCALE. PHARMACOLOGICAL PAIN MANAGEMENT UTILIZED, WILL REASSESS. ON O2 10L VIA MASK, O2 SAT WNL. CEBALLOS CATH IN PLACE. IV ACCESS LOCATED ON LEFT WRIST 22G, SL. PER REPORT, PT IS ON HOSPICE MANAGED [facility]", WILL F/U IF PT CONDITION CHANGES. WILL CONTINUE COMFORT MEASURES AND CONTINUE TO MONITOR.
[2017-06-22 08:00] VITALS: BP 154/79
[2017-06-22] MEDS: LORAZEPAM INJ 2 MG/ML VIAL IV PRN ×2 (14:16→22:17)
[2017-06-22 16:00] VITALS: BP 122/60
--- NOTE | 2017-06-22 16:03 | NUR ---
RN NOTES PER MD ORDER, MORPHINE CHANGED TO 1MG Q1H IVP. ATIVAN ORDERED FOR 1MG Q1H IVP.
--- NOTE | 2017-06-22 18:39 | NUR ---
RN CLOSING NOTES PT SLEEPING IN BED, VSS. FAMILY AT BEDSIDE. NO S/S OF RESPIRATORY DISTRESS OR SOB. PT DOES NOT APPEAR TO BE IN PAIN AT THIS MOMENT. NURSE LEATHER FINISHER FROM [facility] VISITED TODAY ON 06/22/17. NURSE'S ASSESSMENT STATES THAT THE PT APPEARS COMFORTABLE, ANTICIPATES THAT THE PT WILL WITHIN THE NEXT 24-48 HOURS. ALL PT NEEDS ANTICIPATED AND MET, SAFETY MEASURES IN PLACE, BED PLACED TO LOWEST POSITION. WILL ENDORSE TO PLUMBER ASSISTANT FOR EUSEB[place].
--- NOTE | 2017-06-22 19:00 | NUR ---
MS SMART OPENING NOTES PATIENT RESTING IN BED A/O X 1, NON VERBAL, NO ACUTE DISTRESS NOTED.DAUGHTER AT BEDSIDE, BREATHING EVEN AND UNLABORED, NO SOB NOTED. SAFETY MEASURES IN PLACE, BED LOCKED AND IN LOWEST POSITION, CALL LIGHT IN REACH. WILL CONTINUE TO MONITOR. Addendum: 06/23/17 at 0144 by HARRY REIS RN ADDENDUM: CORRECTION PT IS NON VERBAL OPENS EYES
[2017-06-22 20:00] VITALS: BP 142/78
[2017-06-22 20:38] VITALS: BP 142/78
[2017-06-23] MEDS: MORPHINE SULFATE INJ 4 MG/ML DISP.SYRIN IV PRN ×4 (01:07→10:40)
[2017-06-23 04:00] VITALS: BP 144/62
--- NOTE | 2017-06-23 06:30 | NUR ---
MS RN CLOSING NOTES PATIENT COMFORTABLY ASLEEP AND EASILY AWAKEN, HEAD OF BED ELEVATED FOR BETTER LUNG EXPANSION, 0N 10 LPM VIA MASK 02 SAT AT 100% IV SITE NO S/S OF INFILTRATED PATENT AND FLUSHED, NO S/S OF ACUTE DISTRESS, STABLE CONDITION, NO SOB, AFEBRILE, NOT IN PAIN NO FACIAL GRIMACE, NO MOANING NOTED. ALL NURSING CARE RENDERED, NEEDS ATTENDED AND ANTICIPATED, KEPT CLEAN AND DRY AND COMFORTABLE, GOOD SKIN CARE PROVIDED. ASSISTED PT REPOSITIONED EVERY 2 HOURS FOR SKIN MGT, FREQUENT VISUAL CHECK DONE FOR SAFETY EVERY 2 HOURS. SAFE HAZARD FREE ENVIRONMENT PROVIDED. CALL LIGHT WITHIN EASY TO REACH, ON LOW BED AT ALL TIMES TO ENSURE SAFETY, WILL ENDORSE TO THE NEXT SHIFT CONTINUE PLAN OF CARE. FC DRAINING YELLOW VIA GRAVITY WITH NO SEDIMENTS NO HEMATURIA NO CLOUDINESS.
--- NOTE | 2017-06-23 08:11 | NUR ---
MS RN NOTES RECEIVED PATIENT IN BED, ON OXYGEN 10L VIA FACEMASK. APPEARS COMFORTABLE IN BED, ABLE TO OPEN EYES. ON COMFORT MEASURES ONLY. CEBALLOS CATH INTACT, DRAINING TO GRAVITY, URINE DARK YELLOW. CALL LIGHT WITHIN REACH. BED LOW AND LOCKED. WILL CONT TO MONITOR.
[2017-06-23] MEDS: LORAZEPAM INJ 2 MG/ML VIAL IV PRN (11:29)
[2017-06-23] MEDS: MORPHINE SULFATE INJ 2 MG/ML DISP.SYRIN IV SCH ×6 (12:28→17:21)
[2017-06-23] MEDS ORDERED: MORPHINE SULFATE INJ 2 MG/ML DISP.SYRIN IV PRN (12:30)
[2017-06-23] MEDS ORDERED: MORPHINE SULFATE INJ 2 MG/ML DISP.SYRIN IV SCH ×2 (12:30→19:00)
--- NOTE | 2017-06-23 12:33 | NUR ---
PATIENT IN BED, USING ACCESSORY MUSCLE TO BREATH. REMAINS ON OXYGENT AT 10L VIA FACE MASK, SATING 96%. TEMP 99.0, CONT TURNING AND REPOSITION EVERY 2 HOURS WHILE IN BED. PATIENT IS SEEN BY [place]/RN -HOSPICE CARE NURSE, NEW ORDERS BY DR. SAMANIEGO FAXED TO PHARMACY. WILL CONT TO PROVIDE COMFORT CARE. FAMILY AT THE BEDSIDE.
--- NOTE | 2017-06-23 13:31 | NUR ---
PATIENT IN BED, MADE COMFORTABLE. MORPHINE SULFATE 2MG IV SCHEDULE GIVEN FOR PAIN MANAGEMENT. WILL CONT TO PROVIDE COMFORT MEASURES.
[2017-06-23] MEDS: ACETAMINOPHEN 650 MG/SUPP.RECT RC PRN ×2 (15:27→20:23)
[2017-06-23 16:00] VITALS: BP 147/78
--- NOTE | 2017-06-23 16:00 | NUR ---
ELEVATED TEMP 103.6 COOLING MEASURES GIVEN, LOOSEN CLOTHING. GIVEN TYLENOL 650MG SUPP PRN, WILL REASSESS.
[2017-06-23] MEDS ORDERED: MORPHINE SULFATE 30 MG in IV NS 0.9% 28 ML, PCA TOTAL VOLUME 1 BAG IV PRN ×3 (17:00)
--- NOTE | 2017-06-23 17:08 | NUR ---
SPOKE TO [facility]/HOSPICE, NEW ORDERS TO CONVERT MORPHINE SULFATE 2MG EVERY HOUR CONTINUOUS CANNON PINION ADJUSTER. LATIA CALLED AND SPOKE TO [facility].
--- NOTE | 2017-06-23 18:07 | NUR ---
TEMP DECREASE TO 102. CONT WITH COOLING MEASURES. CALLED SPOKE TO NADIYA-CLINICAL SCIENTIST, PER NADIYA CONTINUE TO GIVE COOLING MEASURES. WILL GIVE TYLENOL SUPP PRN WHEN DUE.
--- NOTE | 2017-06-23 19:30 | NUR ---
RN INITIAL NOTES RECEIVED PATIENT IN BED, ONLY RESPONSIVE TO PAINFUL STIMULI. PUPILS PINPOINT. ON O2 VIA SIMPLE MASK AT 10LPM, TOLERATING WELL, BREATHING EVEN, SLIGHTLY LABORED. IV SITE PATENT AND INTACT, FLUSHED WITH NS, FREE FROM ANY S/S OF INFILTRATION OR PHLEBITIS. GT PATENT AND INTACT, CLAMPED AT THIS TIME. AWAITING DELIVERY FROM PHARMACY FOR MORPHINE DRIP. WILL START SOON AVAILABLE. FAMILY MEMBERS AT BEDSIDE, UPDATED REGARDING CURRENT PLAN. WILL CONTINUE TO CLOSELY MONITOR.
--- NOTE | 2017-06-23 19:38 | NUR ---
MS RN CLOSING NOTES PATIENT IN BED, INTERMITTENTLY ABLE TO OPEN HER EYES. PATIENT IS ON COMFORT MEASURES AND IS ON PAIN MANAGEMENT EVERY HOUR. COMFORT CARE PROVIDED, TURN AND REPOSITION Q 2HR. PROVIDED COOLING MEASURES FOR ELEVATED TEMP. CEBALLOS CATH INTACT, ABDOMEN PRESENCE OF GT AND CLAMPED, PATIENT IS ON NPO. AWAITING FOR MORPHINE SULFATE CONTINUOUS VIA PUMP TO BE INFUSED. ENDORSED TO PREFORM MACHINE OPERATOR RN FOR EUSEB[place].
[2017-06-23 19:47] VITALS: BP 136/65
[2017-06-23] MEDS: MORPHINE SULFATE PF DRIP 250 MG in IV D5W 240 ML IV PRN (20:17)
--- NOTE | 2017-06-23 20:17 | NUR ---
RN NOTES - MORPHINE DRIP PATIENT STARTED ON MORPHINE DRIP @ 2MG/HR, WITH ORDERS TO TITRATE NEEDED BY 2MG UP OR DOWN EVERY HOUR, MAXIMUM OF 15MG/HR. ORDERS CHECKED AND VERIFIED WITH CHARGE NURSE TONYA ON EMAR AND PAPER ORDERS. PATIENT'S FAMILY MEMBERS AT BEDSIDE. ALL PERTINENT QUESTIONS ANSWERED. WILL CONTINUE TO CLOSELY MONITOR THE PATIENT
--- NOTE | 2017-06-24 06:46 | NUR ---
RN CLOSING NOTES PATIENT IN BED, CONTINUES ON MORPHINE DRIP @ 2MG/HR, APPEARS COMFORTABLE. WILL ENDORSE THE PATIENT TO THE AM SHIFT NURSE FOR EUSEBIA
--- NOTE | 2017-06-24 07:00 | NUR ---
RN NOTES MORPHINE DRIP SHIFT TOTALS ZEROED WITH DAY SHIFT NURSE. SINCE INITIATION OF MORPHINE DRIP, 22.2MG DELIVERED
--- NOTE | 2017-06-24 07:30 | NUR ---
RECEIVED PT. NON VERBAL,PUPILS PINPOINT. FAMILY AT BEDSIDE MORPHINE DRIP AT 2/ML PER HR. F/CATH TO GRAVITY DRAINAGE WITH GOOD OUTPUT.
[2017-06-24 08:04] VITALS: BP 133/75
--- NOTE | 2017-06-24 09:00 | NUR ---
RN IN TO RM. ADAM.FAMILY REMAINS AT BEDSIDE.
--- NOTE | 2017-06-24 10:00 | NUR ---
G-TUBE IN PLACE AND CLAMPED.
[2017-06-24] MEDS: MORPHINE SULFATE PF DRIP 250 MG in IV D5W 240 ML IV PRN ×3 (11:45→15:48)
--- NOTE | 2017-06-24 11:45 | NUR ---
FAMILY CALLING OUT-RN IN TO RM. PT. GASPING FOR AIR.
--- NOTE | 2017-06-24 11:46 | NUR ---
PUMP INCREASED FROM 2 ML. PER HR TO 4 ML.
--- NOTE | 2017-06-24 11:58 | NUR ---
AGONAL BREATHING,BP 99/45,PULSE BETWEEN 131-150,O2 SAT DOWN TO 13%THEN UP TO 60%.O2 MASK ON AT 10 L.STRONG CAROTID PULSE AT THIS TIME.MORPHINE INFUSING ALONG WITH NS AT SLOW TKO DRIP.
--- NOTE | 2017-06-24 12:09 | NUR ---
BP 165/82,HRATE 144,RR24,POX 92%.
--- NOTE | 2017-06-24 12:31 | NUR ---
BP151/80,[id number],POX94%,RR28.SKIN WARM AND DRY SOME ORAL CONGESTION.
--- NOTE | 2017-06-24 12:53 | NUR ---
MORPHINE DOSE INCREASED TO 6 ML PER HR.
--- NOTE | 2017-06-24 13:10 | NUR ---
POX79%.PT. QUIET.FAMILY AT BEDSIDE.
--- NOTE | 2017-06-24 15:00 | NUR ---
TEMP 103-GIVEN TYLENOL SUPP.
[2017-06-24] MEDS: LORAZEPAM INJ 2 MG/ML VIAL IV PRN (15:02)
--- NOTE | 2017-06-24 15:02 | NUR ---
GIVEN ATIVAN IV.
--- NOTE | 2017-06-24 15:35 | NUR ---
PT. WITH PERIODS OFAPNEA,FAMILY AT BEDSIDE O2 VIA MASK AT 10L.
--- NOTE | 2017-06-24 15:36 | NUR ---
MORPHINE INCREASED TO 8ML/HR.
[2017-06-24 16:00] VITALS: BP 102/49
--- NOTE | 2017-06-24 16:30 | NUR ---
PT. MORE COMFORTABLE.
[2017-06-24] MEDS: ACETAMINOPHEN 650 MG/SUPP.RECT RC PRN ×2 (16:34→21:24)
--- NOTE | 2017-06-24 18:30 | NUR ---
PT. RESTING AT THIS TIME MORPHINE REMAINS AT 8ML PER HR.
--- NOTE | 2017-06-24 19:30 | NUR ---
RN NOTES RECEIVED PT ON BED, UNRESPONSIVE TO VERBAL, TACTILE AND PAIN STIMULI. O2 INHALATION AT 10 LPM, BREATHING SHALLOW WITH LONG GASPS BETWEEN BREATHS, RATE AT 20/MIN. IV ACCESS ON LEFT WRIST WITH ONGOING MORPHINE DRIP AT 8 MG/HR. GT INTACT. CEBALLOS CATH INTACT WITH KATHY COLORED URINE OUTPUT.FAMILY AT BEDSIDE. WILL KEEP PT COMFORTABLE.
[2017-06-24 20:00] VITALS: BP 97/44
[2017-06-24] MEDS ORDERED: KEY,NONCONTROL,TO KEEP IN PYXI 1 EA MC ONE (20:37)
--- NOTE | 2017-06-24 21:24 | NUR ---
RN NOTES VITAL SIGNS CHECKED BP 97/44 HR 131 RR20 TEMP 103, TYLENOL SUPP 650 MG SUPP. ADMINISTER RECTALLY WILL CONTINUE TO MONITOR PT.
--- NOTE | 2017-06-25 | NUR ---
RN NOTES BP 86/43 RR 14 HR 120 TEMP 101.7
--- NOTE | 2017-06-25 02:25 | NUR ---
RN NOTES BP 72/39 HR 102 O2SAT 67% AT 2LPM O2 TEMP 100.3
--- NOTE | 2017-06-25 02:50 | NUR ---
RN NOTES HR 76 O2 SAT 52% AT 10 LPM 02 TEMP 99.2 .PT IS BREATHS VERY SHALLOW AT THE RATE OF 9/MIN. CALLED DAUGHTER RUDI MADE HER AWARE PT IS ACTIVELY DYING.
--- NOTE | 2017-06-25 03:00 | NUR ---
RN NOTES PT STOPS BREATHING, VITAL SIGNS UNAPPRECIATED. PRONOUNCED CHARGE NURSE.
--- NOTE | 2017-06-25 03:10 | NUR ---
RN NOTES [facility] NOTIFIED, SPOKE TO NADIYA SYKES. MADE HIM AWARE PT AT 0300. HE WILL INFORM MORTUARY TO NETWORK SECURITY ANALYST THE REMAINS OF THE PT. FAMILY CAME, INFORM THEM THAT PT AT 0300. ALL NECESSARY PAPERS WERE SIGNED. PRIVATE TIME GIVEN TO THE FAMILY.
--- NOTE | 2017-06-25 03:15 | NUR ---
RN NOTES SPOKE TO DR MARK, MADE HIM AWARE PT EXIRED AT 0300.
--- NOTE | 2017-06-25 03:20 | NUR ---
RN NOTES CALLED [facility], SPOKE TO SANGITA, CASE CLOSED BECAUSE OF AGE CASE# [id number].
--- NOTE | 2017-06-25 03:40 | NUR ---
RN NOTES FAMILY LEFT AND GAVE GO SIGNAL THAT THE REMAINS CAN BE PICK ANYTIME NOW. RECIVED A CALL FROM NADIYA SYKES FROM [facility] AND SAID [facility] WILL BALL WORKER THE BODY IN AN HOUR AND A HALF.
--- NOTE | 2017-06-25 04:40 | NUR ---
RN NOTES POST MORTEM CARE DONE, BODY WAS PICKED UP BY [facility].
== END 2017-06-25 03:00 | disposition expired | DRG 720 ==
LOC: HOSPICE 14:28
PROVIDERS: ADMIT Internal Medicine; ATTEND Internal Medicine
DX: A41.9 Sepsis, unspecified organism (principal); J96.01 Acute respiratory failure with hypoxia; Z66 Do not resuscitate; Z51.5 Encounter for palliative care; N17.0 Acute kidney failure with tubular necrosis; J69.0 Pneumonitis due to inhalation of food and vomit; G93.41 Metabolic encephalopathy; E87.0 Hyperosmolality and hypernatremia; D69.6 Thrombocytopenia, unspecified; Z86.73 Personal history of transient ischemic attack (TIA), and cerebral infarction without residual deficits; I10 Essential (primary) hypertension; Z79.899 Other long term (current) drug therapy; Z99.81 Dependence on supplemental oxygen
CPT/HCPCS: A4216; J2060; J2270; J2274; J7050; J7060